=== PATIENT | female | born 1985 | race Asian ===

== ENCOUNTER 2022-07-29 11:11 | Emergency (ER) | payer OTHER, SELFPAY ==
[2022-07-29] VITALS (10 sets, daily range): BP systolic 89–103; BP diastolic 47–70; PULSE 68–88; RESP 18; TEMP 36.4–37.1; O2SAT 95–100; BMI 20.9
--- NOTE | 2022-07-29 11:42 | ED.FEMALEGU ---
HPI - Female Genitourinary General Time Seen by Provider: 11:42 Date Seen: 07/29/22 Chief complaint: Vaginal Bleeding Stated complaint: hemoglobin levels extremely low Time Seen by Provider: 07/29/22 11:43 Source: patient Mode of arrival: ambulatory Limitations: no limitations History of Present Illness HPI Narrative: Patient is a very sweet 37-year-old female with a history of ongoing vaginal bleeding for approximately 2.5 months who comes to the emergency room with lightheadedness. Patient notes that she had a biopsy 48 hours ago at [place] [facility]. She notes that she was started on iron supplement. She has had lightheadedness before but this seems to be a little bit worse. She states that she had normal. In the month of April but in May was spotting for the entire month. On June 21 she began experiencing heavy vaginal bleeding that lasted until July 10. She then stop for 3 days but then started spotting again for 5 days. Subsequent to the spotting she had 10 days of heavy bleeding and has been spotting since that time. She did undergo biopsy and was started on iron supplement. She was not given any hormone therapy. She is otherwise a healthy woman. Her accompanies her and is very loving and supportive. She notes that today her lightheadedness is worse in her even her legs are achy. She has mild nausea but no vomiting diarrhea dysuria hematuria. Denies fevers or chills. Related Data Home Medications Medication Instructions Recorded Confirmed ferrous sulfate 324 mg (65 mg 324 mg PO DAILY 07/29/22 07/29/22 iron) tablet,delayed release Allergies Allergy/AdvReac Type Severity Reaction Status Date / Time No Known Drug Allergies Allergy Verified 07/29/22 11:20 Review of Systems Status of ROS: Reports: 10 or more systems reviewed and unremarkable except as noted in History and below Const: Reports: fatigue; Denies: fever or chills Eyes: Denies: change in vision or blurry vision ENMT: Denies: throat pain, neck pain, difficulty swallowing or vertigo Cardio: Denies: chest pain, palpitations, swelling of feet/ankles or shortness of breath with exertion Resp: Denies: shortness of breath or cough GI: Reports: nausea; Denies: abdominal pain, vomiting, diarrhea or difficulty swallowing : Reports: vaginal bleeding; Denies: painful urination or blood in urine Musculo: Denies: back pain or neck pain Neuro: Reports: weakness in extremities and dizziness; Denies: headache, vertigo or confusion Endo: Reports: fatigue Allergy/Immuno: Denies: hives [facility] Social History Smoking Status: Never smoker Do you use any of these nicotine containing products: None Second hand tobacco smoke exposure: No How often do you have a drink containing alcohol: never AUDIT-C Alcohol total score: 0 Non-prescribed substance use: denies use Exam Narrative: Exam Narrative: Patient is alert and oriented. Somewhat pale. Flipping of the lower lids shows some pallor. Patient is alert and oriented. Oral cavity moist mucous membranes. Heart with regular rate and rhythm. Lungs are clear bilaterally. Abdomen soft nontender. Capillary refill is delayed. Patient does have warm extremities. Moving all extremities. Const: Vital Signs, click to edit/add: Vital Signs - 24 hr 07/29/22 11:20 07/29/22 14:29 07/29/22 15:47 Temperature 97.5 F L 98.1 F Pulse Rate 82 Pulse Rate [Right Pulse Oximeter] 88 79 Respiratory Rate 18 18 18 Blood Pressure 89/53 L Blood Pressure [Ri ght Upper Arm] 102/61 96/61 Pulse Oximetry 100 100 100 Oxygen Delivery Me thod Room Air Room Air 07/29/22 16:05 07/29/22 16:50 07/29/22 18:05 Temperature 98.4 F 97.6 F 98.6 F Pulse Rate 78 77 78 Pulse Rate [Right Pulse Oximeter] Respiratory Rate 18 18 18 Blood Pressure 94/55 L 96/47 L 93/57 L Blood Pressure [Ri ght Upper Arm] Pulse Oximetry 100 99 100 Oxygen Delivery Me thod Documenting provider has reviewed patient's vital signs: yes Course Course Hospital Course: Per patient report hemoglobin was 6.048 hours ago. Will draw labs to include a CBC, comprehensive panel, place an IV and consult with OBGYN once labs have been returned. Will attempt to obtain the ultrasound report [facility] which was done on the July 27. Reevaluation(s) Reevaluation #1: Discussed with patient's but her hemoglobin is 6.3 and as she is symptomatic would recommend transfusion of 2 units. Risks benefits discussed with patient and informed consent obtained. Reevaluation #2: Dr. Horace Younger consult on this case and agrees with transfusion. She will also add Provera to be used until further notice. We will set patient up to see OBGYN at the [facility] next Tuesday. Will request physician's note, biopsy results from [facility] so that OB has that available to them. Vital Signs Vital signs: Initial Vital Signs Temperature 97.5 F L 07/29/22 11:20 Temperature Source Temporal Artery Scan 07/29/22 11:20 Pulse Rate 88 07/29/22 11:20 Respiratory Rate 18 07/29/22 11:20 Blood Pressure 102/61 07/29/22 11:20 Blood Pressure Mean 74 07/29/22 11:20 Blood Pressure Position Sitting 07/29/22 11:20 Pulse Oximetry 100 07/29/22 11:20 Oxygen Delivery Method Room Air 07/29/22 11:20 Vital Signs Temperature 97.5 F L 07/29/22 11:20 Pulse Rate 88 07/29/22 11:20 Respiratory Rate 18 07/29/22 11:20 Blood Pressure 102/61 07/29/22 11:20 Pulse Oximetry 100 07/29/22 11:20 Oxygen Delivery Method Room Air 07/29/22 11:20 Temperature 98.6 F 07/29/22 18:05 Pulse Rate 78 07/29/22 18:05 Respiratory Rate 18 07/29/22 18:05 Blood Pressure 93/57 L 07/29/22 18:05 Pulse Oximetry 100 07/29/22 18:05 Oxygen Delivery Method Room Air 07/29/22 14:29 MDM - Female Genitourinary MDM Narrative Medical decision making narrative: 1. Anemia-ongoing vaginal bleeding with a hemoglobin of 6.3 today. OBGYN consulted and patient will be started on Provera. Will also give 2 units of packed red blood cells. Informed consent after discussion of risks benefits done. 2. Vaginal bleeding-thickened endometrium per ultrasound that we were able to obtain from [facility]. Dr. Younger will discuss with patient further steps at the appointment next Tuesday at the [facility] which is being made by our staff. 3. Disposition-patient will immediately go to the floor for transfusion and then may go home. I had instructed her to return to the ER for worsening symptoms especially fever, vomiting, chills, increased bleeding, lightheadedness or chest pain. Lab Data Attestation: I reviewed the patient's lab results. Labs: Lab Results 07/29/22 Range/Units 12:05 WBC 5.32 (4.50-11.00) K/uL RBC 2.45 L (4.00-5.20) m/uL Hgb 6.3 L* (12.0-16.0) gm/dL Hct 21.2 L (33.0-51.0) % MCV 87 (80-100) fL MCH 26 (26-34) pg MCHC 30 L (32-36) gm/dL RDW Coeff of Les 14.4 (11.5-15.5) % Plt Count 292 (140-440) K/uL Neut % (Auto) 60.4 (42.0-72.0) % Lymph % (Auto) 28.9 (20-44) % [place]ata[place]oula % (Auto) 5.8 (0.0-11.0) % Eos % (Auto) 3.6 (0.0-7.0) % Baso % (Auto) 1.3 (0.0-3.0) % Neut # (Auto) 3.21 (1.7-7.0) K/uL Lymph # (Auto) 1.54 (0.90-2.90) K/uL [place]oula # (Auto) 0.30 (0.00-0.90) K/UL Eos # (Auto) 0.19 (0.00-0.50) K/uL Baso # (Auto) 0.07 (0.00-0.30) K/uL Diff Slide Review Acceptable Review (Acceptable) INR 1.03 (0.91-1.10) Sodium 139 (135-149) mmol/L Potassium 3.6 (3.6-5.1) mmol/L Chloride 105 (96-114) mmol/L Carbon Dioxide 30 (20-32) mmol/L BUN 12 (5-24) mg/dL Creatinine 0.5 (0.5-1.5) mg/dL Estimated Creat Clear 109.24 Estimated GFR 123 ml/min Glucose 141 H (60-115) mg/dL Calcium 8.1 L (8.4-10.6) mg/dL Iron 14 L (37-170) ug/dL TIBC 361 (265-497) ug/dL % Saturation 4 L (20-50) % Ferritin 8.3 (6.24-137.0) ng/mL Total Bilirubin 0.2 (0.1-1.5) mg/dL AST 19 (12-35) U/L ALT 14 (4-35) U/L Alkaline Phosphatase 32 L (40-150) U/L Total Protein 5.9 L (6.0-8.3) g/dL Albumin 3.6 (3.3-5.0) g/dL Vitamin B12 794 (243-894) pg/mL HCG, Qual Negative (Negative) Blood Type A Positive Antibody Screen NEGATIVE Crossmatch (AHG) See Detail Imaging Data Pelvic ultrasound: My impression: From outside facility thickened endometrium at 15 mm. Discharge Plan Discharge Clinical Impression: Vaginal bleeding Anemia Qualifiers: Anemia type: other cause Other causes of anemia: other cause, not classified Qualified Code(s): D64.89 - Other specified anemias Patient Disposition: Home, Self-Care Condition: Improved Instructions: Menorrhagia (ED), Anemia (ED) Additional Instructions: Follow-up next Tuesday08/04/22 at the [facility], this is the clinic associated with [facility]. Your appointment time will be at 12:00PM with Dr. Horace Younger. Clinic address: [facility] [address], [place] [address] Continue Provera as directed by our OBGYN, Dr. Horace Younger Return to the emergency room for worsening symptoms especially increased bleeding, vomiting, fever, lightheadedness, chest pain. Activity Level: No Restrictions Discharge Diet: Regular Prescriptions: Continued ferrous sulfate 324 mg (65 mg iron) tablet,delayed release (DR/EC) 324 mg PO DAILY Follow Up/Referrals: Michell Wells MD [Staff Physician] - Provider,Not a Local [Primary Care Provider] - Stand Alone Forms: [employer] Info Instructions Discharge Comment: Dr. Wells call a prescription for medroxyprogesterone to the [facility] pharmacy on [address]: Take 1 tablet by mouth daily. Increase to 1 tablet 3x/day as needed to control heavy vaginal bleeding. Disp#50 w/ 1 refill.
[2022-07-29 12:11] LABS: Basophils Absolute Auto 0.07 K/uL (0.00-0.30); Basophils Percent Auto 1.3 % (0.0-3.0); Eosinophils Absolute Auto 0.19 K/uL (0.00-0.50); Eosinophils Percent Auto 3.6 % (0.0-7.0); Hematocrit 21.2 % (33.0-51.0); Lymphocytes Absolute Auto 1.54 K/uL (0.90-2.90); Lymphocytes Percent Auto 28.9 % (20-44); Mean Corpuscular HGB Conc 30 gm/dL (32-36); Mean Corpuscular Hemoglobin 26 pg (26-34); Mean Corpuscular Volume 87 fL (80-100); Monocytes Percent Auto 5.8 % (0.0-11.0); Neutrophils Absolute Auto 3.21 K/uL (1.7-7.0); Neutrophils Percent Auto 60.4 % (42.0-72.0); Platelet Count* 292 K/uL (140-440); RDW Coefficient of Variation % 14.4 % (11.5-15.5); Red Blood Count 2.45 m/uL (4.00-5.20); White Blood Count* 5.32 K/uL (4.50-11.00)
[2022-07-29 12:36] LABS: Albumin* 3.6 g/dL (3.3-5.0); Chloride* 105 mmol/L (96-114); Hemoglobin* 6.3 gm/dL (12.0-16.0); Slide Review Reflex Yes
--- NOTE | 2022-07-29 12:36 | ED.NURSE ---
call from lab, hg 6.3 care nurse and md notified
[2022-07-29 12:37] LABS: Potassium* 3.6 mmol/L (3.6-5.1); Slide Review Acceptable Review (Acceptable); Sodium* 139 mmol/L (135-149)
[2022-07-29 12:38] LABS: HCG Qualitative Serum* Negative (Negative)
[2022-07-29 12:39] LABS: Alkaline Phosphatase* 32 U/L (40-150); Aspartate Amino Transferase* 19 U/L (12-35); Bilirubin Total* 0.2 mg/dL (0.1-1.5); Blood Urea Nitrogen* 12 mg/dL (5-24); Carbon Dioxide* 30 mmol/L (20-32); Creatinine* 0.5 mg/dL (0.5-1.5); Est. Creatinine Clearance* 109.24; Estimated Glomerular Filt Rate 123 ml/min; INR 1.03 (0.91-1.10); Prothrombin Time 14.1 Seconds; Total Protein* 5.9 g/dL (6.0-8.3)
[2022-07-29 12:40] LABS: Alanine Aminotransferase* 14 U/L (4-35); Calcium* 8.1 mg/dL (8.4-10.6); Glucose* 141 mg/dL (60-115)
--- NOTE | 2022-07-29 15:02 | PM.GYNCN1 ---
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 She states that she typically has monthly cycles that last 5-6 days. She uses menstrual underwear and does not typically have to change them they do not get saturated with her cycles. She had a normal cycle in April. May 19 through June 26, had daily spotting then began having heavy bleeding on 06/27/2022. She had heavy bleeding through 07/10/2022. Describes this bleeding as using overnight pads in addition to her menstrual cycle underwear: Change those overnight pads 3 times during the day and twice at night as well as changing her menstrual underwear at least twice a day. She was passing clots and bled onto her clothes. She then had no bleeding for 3 days. Had spotting 07/13-07/16/2022 then had heavy bleeding again 07/17/22-07/27/22. On 07/27/2022 her spouse call around to find a clinic that would see her on the same day so they drove to [place] and were seen in the [facility] there and saw Dr. Ida Uriostegui. She had an ultrasound performed which Dr. Eliz Yang was able to get a copy of off of care everywhere via [employer]. I do not have access to [employer] so I could not see these results. Her Dr. Yang the uterus measured 5.2 x 4.5 x 9.1 with a probable intramural fibroid which I do not know the measurements of. The endometrium was thickened at 15 mm so an endometrial biopsy was performed. The patient has not received results of that endometrial biopsy. Her hemoglobin on 07/27/2022 at that clinic was 6.6. She was not started on medication to prevent heavy vaginal bleeding and was told that Dr. Uriostegui would contact her and make a plan for follow-up once the biopsy results had returned. The clinic then contacted her yesterday morning on 07/28/2022 to tell her to start an iron supplement and that they were going to try to get her into their infuse in center for a blood transfusion. She was contacted this morning and was told that there is no availability in their infusion center until next Tuesday and to the doctor recommended that she go to the nearest emergency department because needs blood sooner than next week. I do not know why they did not give her blood when she was seen on 07/27/2022 in their emergency department. She continues to have a throbbing headache, feels dizzy and feels very short of breath when she goes up just 1 flight of stairs. She has not noticed anything that has made the symptoms improve. Taking Advil and laying down helps her headache but does not make it go completely away. She is not typically have heavy menstrual cycles. She has mild cramping that is managed with [id number] Advil and a heating pad. Deisi is not on control pills nor does she use any other form of control. She and her spouse, Cuco have been together for 10 years. She is originally from the [facility] [place]. They met online in 2011 and she moved here in 2013 to get . They have never used control and she has never been . They are not interested in infertility evaluation. They both work in [employer] for [employer]. Deisi is being admitted today for a transfusion of 2 units of packed red blood cells. I will also send a prescription for Provera to her pharmacy. I want her to take Provera daily to prevent heavy bleeding. If she does begin to have heavy bleeding she can take the Provera up to 3 times a day. The patient and her spouse live in [place] urge them to see me next Tuesday in [place] so that we can make a plan for future treatment. I suspect she needs a hysteroscopy D&C but I would like to get the results of the endometrial biopsy back and get a copy of the ultrasound report so that I can make an informed recommendation to Deisi and Cuco. They are happy with this plan. MEDICAL HISTORY: 1. Menorrhagia with secondary anemia 2. Status post transfusion of 2 units packed red blood cells SURGICAL HISTORY: None OBSTETRIC/GYNECOLOGIC HISTORY: Deisi has never been . Cis gender, heterosexual woman. Sexually transmitted infections: No Pelvic inflammatory disease: No MRSA infection: No. History of abnormal Pap smears: No. She is unsure when her last Pap smear Nothing for contraception SOCIAL HISTORY: Relationship status: . Spouse/Partner: Cuco Occupation: Works in manufacturing for [employer] Education: High school graduate Smoker: Tobacco: Lifetime nonsmoker, E-cigarettes: No Alcohol consumption: No. Illicit or Recreational drug use: No. Concerns for safety at home/work: No. Would like to discuss issues of abuse: No. Dietary restrictions: No Exercise: No FAMILY HISTORY: Noncontributory ALLERGIES: NKDA cc:: CC: [facility] Social History Smoking Status: Never smoker Do you use any of these nicotine containing products: None Second hand tobacco smoke exposure: No How often do you have a drink containing alcohol: never AUDIT-C Alcohol total score: 0 Non-prescribed substance use: denies use Meds Home Medications and Allergies Home Medications Medication Instructions Recorded Confirmed Type ferrous sulfate 324 mg (65 mg 324 mg PO DAILY 07/29/22 07/29/22 History iron) tablet,delayed release Allergies Allergy/AdvReac Type Severity Reaction Status Date / Time No Known Drug Allergies Allergy Verified 07/29/22 11:20 [employer]IC - Exam Physical Exam: Vital signs: Temp Pulse Resp BP Pulse Ox O2 Del Method 97.5 F L 79 18 96/61 100 Room Air 07/29/22 11:20 07/29/22 14:29 07/29/22 14:29 07/29/22 14:29 07/29/22 14:29 07/29/22 14:29 Narrative: General: Pleasant, [place] woman, very pale: Her lips are this same color as her skin on her face. Appears fatigued. Vital signs: Included in her medical record. Psychiatric: Alert and oriented x3. Normal speech pattern, eye contact and affect. Abdomen: Soft, nontender, nondistended with normal bowel sounds throughout. No hepatosplenomegaly, masses or hernias to inspection or palpation. No CVA or flank tenderness. Heart: Regular rate and rhythm without gallop, rub or murmur. Chest: Clear to auscultation bilaterally. Pelvic: Deferred Extremities: No pain, edema, cyanosis or clubbing. [employer]IC - Results Labs Labs: Short CBC 07/29/22 Range/Units 12:05 WBC 5.32 (4.50-11.00) K/uL Hgb 6.3 L* (12.0-16.0) gm/dL Hct 21.2 L (33.0-51.0) % Plt Count 292 (140-440) K/uL BMP 07/29/22 12:05 Sodium 139 Potassium 3.6 Chloride 105 Carbon Dioxide 30 BUN 12 Creatinine 0.5 Glucose 141 H Calcium 8.1 L Liver Function 07/29/22 Range/Units 12:05 Total Bilirubin 0.2 (0.1-1.5) mg/dL AST 19 (12-35) U/L ALT 14 (4-35) U/L Alkaline Phosphatase 32 L (40-150) U/L Albumin 3.6 (3.3-5.0) g/dL Assessment and Plan Assessment and plan (1) Vaginal bleeding: Status: Acute Assessment and Plan: 1. Known thickened endometrium on ultrasound from 07/27/2022 status post endometrial biopsy with results pending. 2. Secondary, symptomatic anemia. 3. Prescription for Provera 10 mg p.o. daily to prevent the vaginal bleeding. Increase up to 3 times per day to control bleeding. 4. Return to the [facility] in [place] on Tuesday08/04/2022 to review results and make a plan for treatment: Likely hysteroscopy with dilation and curettage with or without placement of Mirena IUD. 5. If there is evidence of precancer or malignancy on her endometrial biopsy than I am planning on referring her to a gynecologic oncologist for surgery (hysterectomy, bilateral salpingo oophorectomy, pelvic lymph node sampling) and additional treatment if needed. (2) Anemia: Status: Acute Assessment and Plan: 1. Patient will be getting 2 units of packed red blood cells today and will be able to be discharged home. 2. No activity restrictions. 3. Follow-up as recommended.
[2022-07-29] MEDS: MEDROXYPROGESTERONE 5 MG TABLET 10 MG PO (16:34)
[2022-07-29] MEDS: FERROUS SULFATE 325 MG TABLET PO (16:34)
[2022-07-29 16:38] LABS: Iron* 14 ug/dL (37-170)
[2022-07-29 16:47] LABS: Percent Iron Saturation 4 % (20-50); Total Iron Binding Capacity 361 ug/dL (265-497)
--- NOTE | 2022-07-29 16:59 | ED.NURSE ---
MITCHELL signed by patient and faxed to [facility] for records request.
[2022-07-29 17:16] LABS: Ferritin* 8.3 ng/mL (6.24-137.0)
[2022-07-29 17:29] LABS: Vitamin B12* 794 pg/mL (243-894)
--- NOTE | 2022-07-29 21:38 | PC.NURSE ---
OP infusion [id number]- Patient receives 2 units of PRBCs without complication, she tolerates well. She is given follow up instructions verbally and in-print. Family member at bedside and supportive throughout. She leaves with all belongings at infusion completion.
== END 2022-07-29 20:30 | disposition home or self-care (01) ==
PROVIDERS: Obstetrics & Gynecology; Emergency Provider Family Medicine
DX: N93.9 Abnormal uterine and vaginal bleeding, unspecified (principal); D64.89 Other specified anemias
CPT/HCPCS: 36415; 36430; 80053; 82607; 82728; 83540; 83550; 84703; 85025; 85610; 86850; 86900; 86901; 86922; 99284; A9270; P9016

== ENCOUNTER 2022-08-24 08:39 | Day surgery (SDC) | payer OTHER, SELFPAY ==
[2022-08-24] VITALS (7 sets, daily range): BP systolic 91–114; BP diastolic 60–79; PULSE 61–73; RESP 16; TEMP 36.2–36.9; O2SAT 97–100; BMI 21.3
--- NOTE | 2022-08-24 09:12 | SUR.PREOP ---
Pt voided just prior to being brought back to [facility] for admission, unable to fill urine cup for UCG. Pt verbalized, I know I am not . Form signed and in chart.
[2022-08-24] MEDS: LACTATED RINGERS 1000 ML 1,000 ML 100 ML IV (09:36)
[2022-08-24] MEDS: SODIUM CHLORIDE 0.9 % (FLUSH) 10 ML SYRINGE IVF (09:36)
--- NOTE | 2022-08-24 10:17 | W.ANESCHARGE ---
Anesthesia Charges Start Date/Time Anesthesia Start Date: 08/24/22 Anesthesia Start Time: 10:28 Stop Date/Time Anesthesia Stop Date: 08/24/22 Anesthesia Stop Time: 11:26
--- NOTE | 2022-08-24 10:47 | P.PCN_ITS ---
Procedure Note Time Seen by Provider: 10:47 Date Seen: 08/24/22 Date of procedure: 08/24/22 Will [facility] bill your pro fee for this procedure?: Yes Procedure: Preoperative diagnosis: 37 year-old nulligravid woman with menorrhagia with secondary anemia, suspected polyp on ultrasound. Postoperative diagnosis: Same Procedure: Hysteroscopy, Dilation and Curettage using the Truclear incisor Anesthesia: Conscious sedation, paracervical block. Surgeon: Michell Wells MD Warehouse Team Member: None Estimated blood loss: 3 mL Specimen: Endometrial curettings to pathology. Findings: Exam under anesthesia: Uterus: Anteflexed position, less than less than 8 week sized, mobile, with no masses or nodularity palpable. Uterus sounded to 9 cm. No adnexal masses or nodularity palpable. On hysteroscopy: Multiple polypoid masses within the endometrium with some synechiae at the fundus bilaterally. Once the polyps and scarring were removed with the TruClear incisor the endometrium appeared normal. Procedure: Deisi was taken to the operating operating room more conscious sedation was found to be adequate. The patient was placed on in the dorsal lithotomy position and an exam under anesthesia was performed with findings stated above. She was then prepped and draped in a normal sterile manner. A bivalve speculum was placed in the vagina. The cervix appears nulliparous. Otherwise no abnormalities. The paracervical block was placed using 0.5% Marcaine, 5 mL was injected at the 4 and 8 o'clock positions on the cervix. The anterior lip of the cervix was grasped with a long Allis clamp. The cervix dilated to Hegar 6. The uterus sounded to 9 cm. The Truclear hysteroscope was advanced into the uterus. A diagnostic hysteroscopy was performed with normal saline as the insufflation medium. Findings are stated above. The Truclear incisor was then advanced through the camera. The curettage was performed with the incisor over an approximately 3 minutes. The incisor was then removed. The endometrial cavity appeared normal. Saline deficit at the end of the procedure 110 mL. Total saline used 1135 mL. Nothing was needed for hemostasis. The hysteroscope, Allis clamp and speculum were removed from the vaginal canal. The patient tolerated the procedure well. Sponge, lap and instrument counts were correct x2 at the end of the procedure. The patient was taken to the recovery area in stable condition. The patient received 15 mg IV Toradol prior to the start of the procedure.
[2022-08-24] MEDS: BUPIVACAINE 0.5% 30 ML INJECTION (10:58)
--- NOTE | 2022-08-24 11:24 | W.ANESCHARGE ---
Anesthesia Charges Start Date/Time Anesthesia Start Date: 08/24/22 Anesthesia Start Time: 10:28 Stop Date/Time Anesthesia Stop Date: 08/24/22 Anesthesia Stop Time: 11:26
== END 2022-08-24 13:27 | disposition home or self-care (01) ==
LOC: OR 08:40
PROVIDERS: PCP Registered Nurse; Visit Provider Obstetrics & Gynecology
PROC: 0UDB8ZZ Extraction of Endometrium, Via Natural or Artificial Opening Endoscopic (ICD-10-PCS; CPT 58558; principal; 2022-08-24 10:30)
DX: N92.0 Excessive and frequent menstruation with regular cycle (principal); D50.0 Iron deficiency anemia secondary to blood loss (chronic); N84.0 Polyp of corpus uteri
CPT/HCPCS: 58558; 00952; 81025; 88305; J2250; J2704; J3010; J3490; J7120